=== PATIENT | female | born 1935 | race Caucasian/White ===

== ENCOUNTER → 2016-07-14 | Outpatient (CLI) | payer MEDICARE ==
[2016-07-14 13:36] LABS: INR 2.68
== END ==
LOC: M WUC 11:25
PROVIDERS: ATTEND Physician Assistant
DX: I26.99 Other pulmonary embolism without acute cor pulmonale (principal); Z51.81 Encounter for therapeutic drug level monitoring; Z79.01 Long term (current) use of anticoagulants

== ENCOUNTER → 2016-08-18 | Outpatient (CLI) | payer MEDICARE ==
[2016-08-18 19:42] LABS: INR 2.43
== END ==
LOC: M WUC 17:03
PROVIDERS: ATTEND Physician Assistant
DX: I26.99 Other pulmonary embolism without acute cor pulmonale (principal)

== ENCOUNTER → 2016-09-14 | Outpatient (CLI) | payer MEDICARE ==
[2016-09-14 14:01] LABS: INR 1.98
== END ==
LOC: M WUC 10:30
PROVIDERS: ATTEND Physician Assistant
DX: I26.99 Other pulmonary embolism without acute cor pulmonale (principal); Z51.81 Encounter for therapeutic drug level monitoring; Z79.01 Long term (current) use of anticoagulants

== ENCOUNTER → 2016-09-14 | Outpatient (CLI) | payer MEDICARE ==
[2016-09-14 14:32] LABS: CREATININE FOR GFR 1.63 MG/DL (0.55-1.02)
[2016-09-14 14:33] LABS: CALCIUM LEVEL 9.2 MG/DL (8.8-10.2); GLOMERULAR FILTRATION RATE 32.1 (>32); POTASSIUM SERUM 4.7 MEQ/L (3.5-5.1)
== END ==
LOC: M WUC 10:27
PROVIDERS: ATTEND Nurse Practitioner Family
DX: I11.0 Hypertensive heart disease with heart failure (principal); Z79.01 Long term (current) use of anticoagulants

== ENCOUNTER → 2016-11-02 | Outpatient (CLI) | payer MEDICARE | LOC: M WUC 14:21 | PROVIDERS: ATTEND Nurse Practitioner Family | DX: Z51.81 Encounter for therapeutic drug level monitoring (principal); Z79.01 Long term (current) use of anticoagulants; I26.99 Other pulmonary embolism without acute cor pulmonale ==

== ENCOUNTER → 2016-12-08 | Outpatient (CLI) | payer MEDICARE ==
[2016-12-08 12:54] LABS: INR 2.93
== END ==
LOC: M WUC 09:55
PROVIDERS: ATTEND Nurse Practitioner Family
DX: I26.99 Other pulmonary embolism without acute cor pulmonale (principal); Z51.81 Encounter for therapeutic drug level monitoring; Z79.01 Long term (current) use of anticoagulants

== ENCOUNTER → 2017-01-04 | Outpatient (CLI) | payer MEDICARE ==
[~2017-01-04] MED LIST: ALLO100T; ATEN25TA PO; CALC1CAP31; FLEC25TA; FLEC50TA PO; FURO20TA2; KPHOS50TA; LEVO50TA5; MAG400TA; PRAV20TA2; RANI150T; SPIR25TA2; TRAD5TAB; VITA200015; WARF-23
[2017-01-04 13:37] LABS: INR 2.61
== END ==
LOC: M WUC 10:18
PROVIDERS: ATTEND Physician Assistant
DX: I26.99 Other pulmonary embolism without acute cor pulmonale (principal); Z51.81 Encounter for therapeutic drug level monitoring; Z79.01 Long term (current) use of anticoagulants

== ENCOUNTER 2017-01-30 08:36 | Emergency (ER) | payer MEDICARE ==
[~2017-01-30] VITALS: Ht 157.5 cm; Wt 100.0 kg
[2017-01-30] MEDS ORDERED: LEVO50TA5 (08:56)
[2017-01-30] MEDS ORDERED: SPIR25TA2 (08:56)
[2017-01-30] MEDS ORDERED: CALC1CAP31 (08:56)
[2017-01-30] MEDS ORDERED: ALLO100T (08:56)
[2017-01-30] MEDS ORDERED: TRAD5TAB (08:56)
[2017-01-30] MEDS ORDERED: RANI150T (08:56)
[2017-01-30] MEDS ORDERED: KPHOS50TA (08:56)
[2017-01-30] MEDS ORDERED: WARF-23 (08:56)
[2017-01-30] MEDS ORDERED: MAG400TA (08:56)
[2017-01-30] MEDS ORDERED: FURO20TA2 (08:56)
[2017-01-30] MEDS ORDERED: VITA200015 (08:56)
[2017-01-30] MEDS ORDERED: PRAV20TA2 (08:56)
[2017-01-30] MEDS ORDERED: FLEC25TA (08:56)
[2017-01-30] MEDS ORDERED: FLEC50TA PO (10:08)
[2017-01-30 10:21] LABS: INR 2.75
[2017-01-30 10:22] LABS: BASO % 0.7 % (0.0-1.0); EOS % 0.6 % (0.0-3.0); LARGE UNSTAINED CELL # 0.1 K/mm3 (0.0-0.4); LARGE UNSTAINED CELL % 1.6 % (0.0-4.0); LYMPH # 1.6 K/mm3 (1.5-4.5); LYMPH % 21.9 % (24.0-44.0); MEAN CORPUSCULAR HEMOGLOBIN 31.5 pg (27.0-33.0); MEAN CORPUSCULAR HGB CONC 33.2 g/dl (32.0-36.5); MEAN CORPUSCULAR VOLUME 94.8 fl (80.0-96.0); MONO # 0.5 K/mm3 (0.0-0.8); MONO % 6.6 % (0.0-5.0); NEUTROPHILS # 5.1 K/mm3 (1.8-7.7); NEUTROPHILS % 68.6 % (36.0-66.0); PLATELET COUNT, AUTOMATED 231 k/mm3 (150-450); RED CELL DISTRIBUTION WIDTH 13.6 % (11.5-14.5); WHITE BLOOD COUNT 7.5 K/mm3 (4.0-10.0)
[2017-01-30] MEDS ORDERED: METOPROLOL TART 25 MG TABLET PO ONE (10:30)
[2017-01-30] MEDS ORDERED: METOPROLOL 5 MG/5 ML VIAL IV SCH (10:30)
[2017-01-30 10:48] LABS: ANION GAP 11 MEQ/L (8-16); BLOOD UREA NITROGEN 25 MG/DL (7-18); CALCIUM LEVEL 8.9 MG/DL (8.8-10.2); CARBON DIOXIDE LEVEL 27 MEQ/L (21-32); CHLORIDE LEVEL 104 MEQ/L (98-107); CREATININE FOR GFR 1.71 MG/DL (0.55-1.02); GLOMERULAR FILTRATION RATE 30.4 (>32); GLUCOSE, FASTING 184 MG/DL (83-110); POTASSIUM SERUM 4.1 MEQ/L (3.5-5.1); SODIUM LEVEL 142 MEQ/L (136-145)
[2017-01-30 10:49] VITALS: BP 163/83
--- NOTE | 2017-01-30 11:28 | REP ---
AP PORTABLE CHEST: 01/30/2017. Comparison: 12/13/2013, 01/05/2012. Clinical history: Chest pain. Findings: The lung pelaez are less well inflated than on the previous study but show underlying hyperinflation. There is no definite effusion, acute infiltrate, atelectasis or mass. Minor basilar fibrotic changes are seen. The aorta is mildly tortuous. Heart not grossly enlarged. Bones are demineralized. Impression: 1. Some underlying basilar fibrotic change without gross cardiomegaly, vascular redistribution or pulmonary edema. Signed by Emil Mukherjee MD 01/30/2017 06:02 P
[2017-01-30 13:12] VITALS: BP 131/63
[2017-01-30] MEDS ORDERED: ATEN25TA PO (13:14)
--- NOTE | 2017-01-30 18:11 | ECGEPIP ---
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
== END 2017-01-30 13:23 | disposition home or self-care (01) ==
LOC: M ED 08:36
DX: I48.91 Unspecified atrial fibrillation (principal); I50.9 Heart failure, unspecified; E11.9 Type 2 diabetes mellitus without complications; I10 Essential (primary) hypertension

== ENCOUNTER 2017-03-04 01:10 | Emergency (ER) | payer MEDICARE ==
[~2017-03-04] VITALS: Ht 160 cm; Wt 99.1 kg
[2017-03-04 02:53] LABS: BASO % 0.5 % (0.0-1.0); EOS # 0.1 K/mm3 (0.0-0.50); EOS % 1.1 % (0.0-3.0); LARGE UNSTAINED CELL # 0.1 K/mm3 (0.0-0.4); LYMPH # 1.5 K/mm3 (1.5-4.5); LYMPH % 15.8 % (24.0-44.0); MEAN CORPUSCULAR HEMOGLOBIN 31.7 pg (27.0-33.0); MEAN CORPUSCULAR HGB CONC 32.5 g/dl (32.0-36.5); MEAN CORPUSCULAR VOLUME 97.5 fl (80.0-96.0); MONO # 0.5 K/mm3 (0.0-0.8); NEUTROPHILS # 6.9 K/mm3 (1.8-7.7); NEUTROPHILS % 76.6 % (36.0-66.0); PLATELET COUNT, AUTOMATED 233 k/mm3 (150-450); RED CELL DISTRIBUTION WIDTH 13.9 % (11.5-14.5)
[2017-03-04 03:22] LABS: BLOOD UREA NITROGEN 26 MG/DL (7-18); CALCIUM LEVEL 8.7 MG/DL (8.8-10.2); CHLORIDE LEVEL 109 MEQ/L (98-107); CREATININE FOR GFR 1.62 MG/DL (0.55-1.02); FREE T4 1.29 NG/DL (0.76-1.46); GLUCOSE, FASTING 157 MG/DL (83-110); POTASSIUM SERUM 4.5 MEQ/L (3.5-5.1); SODIUM LEVEL 146 MEQ/L (136-145)
[2017-03-04 03:55] LABS: ANION GAP 7 MEQ/L (8-16); CARBON DIOXIDE LEVEL 30 MEQ/L (21-32)
[2017-03-04 06:09] VITALS: BP 125/68
--- NOTE | 2017-03-04 11:14 | REP ---
Clinical: Chest pain . Comparison: 01/30/2017 . Findings: The mediastinum and cardiac silhouette are stable and within normal limits for portable technique. The lung pelaez are clear without acute consolidation, effusion, or pneumothorax. Skeletal structures are intact. Impression: No acute cardiopulmonary process appreciated. Signed by Ron North MD 03/04/2017 07:23 A
--- NOTE | 2017-03-05 08:01 | ECGEPIP ---
Stationary ECG Study [facility] - ED Test Date: 2017-03-04 Pat Name: GALEN NATHAN Department: Room: - Gender: F Director Surgical: jesus : 1935 Requested By: RIANA Oneil Order Number: [id number] Reading MD: Chhaya Arita Measurements Intervals [place] Rate: 98 P: 62 MI: 93 QRS: -26 QRSD: 182 T: 138 QT: 417 QTc: 534 Interpretive Statements SINUS RHYTHM WITH SHORT MI INTERVAL LEFT BUNDLE BRANCH BLOCK Electronically Signed On 03-05-2017 8:00:44 EDT by Chhaya Arita
--- NOTE | 2017-03-05 08:03 | ECGEPIP ---
Stationary ECG Study [facility] - ED Test Date: 2017-03-04 Pat Name: GALEN NATHAN Department: Room: - Gender: F [employer]isher: jesus : 1935 Requested By: RIANA Oneil Order Number: [id number] Reading MD: Chhaya Arita Measurements Intervals [place] Rate: 96 P: 35 IA: 150 QRS: -25 QRSD: 176 T: 151 QT: 411 QTc: 519 Interpretive Statements SINUS RHYTHM LEFT BUNDLE BRANCH BLOCK Electronically Signed On 03-05-2017 8:03:25 EDT by Chhaya Arita
== END 2017-03-04 06:28 | disposition home or self-care (01) ==
LOC: M ED 01:10
DX: R00.2 Palpitations (principal); I50.9 Heart failure, unspecified; I25.10 Atherosclerotic heart disease of native coronary artery without angina pectoris

== ENCOUNTER → 2017-03-15 | Outpatient (CLI) | payer MEDICARE ==
[2017-03-15 18:06] LABS: INR 3.5
== END ==
LOC: M WUC 13:51
PROVIDERS: ATTEND Nurse Practitioner Family
DX: I26.99 Other pulmonary embolism without acute cor pulmonale (principal)

== ENCOUNTER → 2017-03-30 | Outpatient (REF) | payer MEDICARE ==
[2017-03-30 18:18] LABS: INR 4.77
== END ==
LOC: M LABDRWCV 16:10
PROVIDERS: ATTEND Nurse Practitioner Family
DX: I26.99 Other pulmonary embolism without acute cor pulmonale (principal)

== ENCOUNTER → 2017-04-07 | Outpatient (CLI) | payer MEDICARE | LOC: M WUC 13:52 | PROVIDERS: ATTEND Internal Medicine Cardiovascular Disease | DX: I26.99 Other pulmonary embolism without acute cor pulmonale (principal); Z51.81 Encounter for therapeutic drug level monitoring; Z79.01 Long term (current) use of anticoagulants ==

== ENCOUNTER → 2017-05-17 | Outpatient (CLI) | payer MEDICARE ==
[2017-05-17 12:32] LABS: INR 2.18
== END ==
LOC: M WUC 10:41
PROVIDERS: ATTEND Nurse Practitioner Family
DX: I26.99 Other pulmonary embolism without acute cor pulmonale (principal)

== ENCOUNTER → 2017-07-07 | Outpatient (CLI) | payer MEDICARE ==
[2017-07-07 21:00] LABS: INR 1.67; PROTHROMBIN TIME 20.2 SECONDS (12.4-14.5)
== END ==
LOC: M WUC 17:21
DX: Z51.81 Encounter for therapeutic drug level monitoring (principal); Z79.01 Long term (current) use of anticoagulants; I26.99 Other pulmonary embolism without acute cor pulmonale
CPT/HCPCS: 85610

== ENCOUNTER → 2017-07-25 | Outpatient (CLI) | payer MEDICARE ==
[2017-07-25 12:30] LABS: INR 2.45; PROTHROMBIN TIME 27.5 SECONDS (12.4-14.5)
== END ==
LOC: M WUC 10:24
DX: I26.99 Other pulmonary embolism without acute cor pulmonale (principal); Z51.81 Encounter for therapeutic drug level monitoring; Z79.01 Long term (current) use of anticoagulants
CPT/HCPCS: 85610

== ENCOUNTER → 2017-08-23 | Outpatient (CLI) | payer MEDICARE ==
[2017-08-23 20:30] LABS: INR 2.83
== END ==
LOC: M WUC 17:40
DX: I26.99 Other pulmonary embolism without acute cor pulmonale (principal); Z79.01 Long term (current) use of anticoagulants
CPT/HCPCS: 85610

== ENCOUNTER → 2017-09-19 | Outpatient (CLI) | payer MEDICARE ==
[2017-09-19 17:17] LABS: INR 3.26; PROTHROMBIN TIME 34.8 SECONDS (12.4-14.5)
== END ==
LOC: M WUC 10:48
DX: I26.99 Other pulmonary embolism without acute cor pulmonale (principal)
CPT/HCPCS: 85610

== ENCOUNTER → 2017-11-17 | Outpatient (CLI) | payer MEDICARE ==
[2017-11-17 12:14] LABS: INR 1.89; PROTHROMBIN TIME 22.3 SECONDS (12.4-14.5)
== END ==
LOC: M WUC 08:40
DX: I26.99 Other pulmonary embolism without acute cor pulmonale (principal); Z79.01 Long term (current) use of anticoagulants
CPT/HCPCS: 85610

== ENCOUNTER → 2017-12-06 | Outpatient (CLI) | payer MEDICARE ==
[2017-12-06 10:47] LABS: PROTHROMBIN TIME 27.1 SECONDS (12.4-14.5)
== END ==
LOC: M WUC 09:27
DX: I26.99 Other pulmonary embolism without acute cor pulmonale (principal)
CPT/HCPCS: 85610

== ENCOUNTER → 2018-01-03 | Outpatient (CLI) | payer MEDICARE ==
[2018-01-03 17:26] LABS: INR 2.74; PROTHROMBIN TIME 29.6 SECONDS (12.1-14.4)
== END ==
LOC: M WUC 11:43
DX: I26.99 Other pulmonary embolism without acute cor pulmonale (principal)
CPT/HCPCS: 85610

== ENCOUNTER 2018-01-20 11:42 | Emergency (ER) | payer MEDICARE | END 2018-01-20 15:10 | disposition home or self-care (01) | LOC: M ED 11:42 | DX: S00.33XA Contusion of nose, initial encounter (principal); S60.212A Contusion of left wrist, initial encounter; W01.10XA Fall on same level from slipping, tripping and stumbling with subsequent striking against unspecified object, initial encounter; Y92.89 Other specified places as the place of occurrence of the external cause; Y93.9 Activity, unspecified; Y99.9 Unspecified external cause status; I48.91 Unspecified atrial fibrillation; I50.9 Heart failure, unspecified; E11.9 Type 2 diabetes mellitus without complications; I10 Essential (primary) hypertension; E78.00 Pure hypercholesterolemia, unspecified; M19.012 Primary osteoarthritis, left shoulder; M85.812 Other specified disorders of bone density and structure, left shoulder; M47.812 Spondylosis without myelopathy or radiculopathy, cervical region; Z79.01 Long term (current) use of anticoagulants; Z79.899 Other long term (current) drug therapy; Z88.8 Allergy status to other drugs, medicaments and biological substances | CPT/HCPCS: 73030 ==

== ENCOUNTER → 2018-02-08 | Outpatient (CLI) | payer MEDICARE ==
[2018-02-08 12:20] LABS: INR 2.43; PROTHROMBIN TIME 26.9 SECONDS (12.1-14.4)
== END ==
LOC: M WUC 08:48
DX: I26.99 Other pulmonary embolism without acute cor pulmonale (principal)
CPT/HCPCS: 85610

== ENCOUNTER → 2018-03-07 | Outpatient (CLI) | payer MEDICARE ==
[2018-03-07 11:18] LABS: INR 2.93; PROTHROMBIN TIME 31.2 SECONDS (12.1-14.4)
== END ==
LOC: M WUC 09:20
DX: I26.99 Other pulmonary embolism without acute cor pulmonale (principal); Z51.81 Encounter for therapeutic drug level monitoring; Z79.01 Long term (current) use of anticoagulants
CPT/HCPCS: 85610

== ENCOUNTER → 2018-04-10 | Outpatient (CLI) | payer MEDICARE ==
[2018-04-10 13:38] LABS: INR 2.35; PROTHROMBIN TIME 26.2 SECONDS (12.1-14.4)
== END ==
LOC: M WUC 10:10
DX: I26.99 Other pulmonary embolism without acute cor pulmonale (principal)
CPT/HCPCS: 85610

== ENCOUNTER → 2018-05-08 | Outpatient (CLI) | payer MEDICARE ==
[2018-05-08 19:50] LABS: INR 3.02
== END ==
LOC: M WUC 17:11
DX: I26.99 Other pulmonary embolism without acute cor pulmonale (principal); Z51.81 Encounter for therapeutic drug level monitoring; Z79.01 Long term (current) use of anticoagulants
CPT/HCPCS: 85610

== ENCOUNTER → 2018-08-01 | Outpatient (CLI) | payer MEDICARE ==
[~2018-08-01] MED LIST changes: +FLEC50HA PO; -FLEC50TA PO; +SPIR-10; -SPIR25TA2
[2018-08-01 14:51] LABS: INR 2.03; PROTHROMBIN TIME 23.4 SECONDS (12.1-14.4)
== END ==
LOC: M WUC 11:22
PROVIDERS: ATTEND Physician Assistant
DX: I26.99 Other pulmonary embolism without acute cor pulmonale (principal)

== ENCOUNTER → 2018-08-22 | Outpatient (CLI) | payer MEDICARE ==
[2018-08-22 17:11] LABS: INR 2.4; PROTHROMBIN TIME 26.6 SECONDS (12.1-14.4)
== END ==
LOC: M WUC 11:29
PROVIDERS: ATTEND Physician Assistant
DX: I26.99 Other pulmonary embolism without acute cor pulmonale (principal)

== ENCOUNTER 2018-08-31 10:38 | Emergency (ER) | payer MEDICARE ==
[~2018-08-31] VITALS: Ht 157.5 cm; Wt 99.6 kg
[~2018-08-31 10:38] MED LIST changes: -ALLO100T; +ALLO100T PO; -CALC1CAP31; +CALC1CAP31 PO; -FURO20TA2; +FURO20TA2 PO; -KPHOS50TA; +KPHOS50TA PO; -MAG400TA; +MAG400TA PO; -PRAV20TA2; +PRAV20TA2 PO; -RANI150T; +RANI150T PO; -SPIR-10; +SPIR-10 PO; -TRAD5TAB; +TRAD5TAB PO; -VITA200015; +VITA200015 PO; -WARF-23; +WARF-23 PO
[2018-08-31 11:23] LABS: BASO # 0.1 10^3/uL (0.0-0.2); BASO % 0.6 % (0.0-1.0); EOS # 0.1 10^3/uL (0.0-0.50); HEMATOCRIT 47.1 % (36.0-47.0); HEMOGLOBIN 15.2 g/dl (12.0-15.5); LYMPH # 2.4 10^3/uL (1.5-4.5); LYMPH % 27.7 % (24.0-44.0); MEAN CORPUSCULAR HEMOGLOBIN 31.3 pg (27.0-33.0); MEAN CORPUSCULAR HGB CONC 32.3 g/dl (32.0-36.5); MEAN CORPUSCULAR VOLUME 97.1 fl (80.0-96.0); MONO # 0.7 10^3/uL (0.0-0.8); MONO % 7.9 % (0.0-5.0); NEUTROPHILS # 5.5 10^3/uL (1.8-7.7); NEUTROPHILS % 62.2 % (36.0-66.0); PLATELET COUNT, AUTOMATED 209 10^3/uL (150-450); RED BLOOD COUNT 4.85 10^6/uL (4.00-5.40); WHITE BLOOD COUNT 8.8 10^3/uL (4.0-10.0)
--- NOTE | 2018-08-31 11:30 | REP ---
Portable chest x-ray: Single view. History: Chest pain. Comparison chest x-ray: March 04, 2017. Findings: EKG monitoring electrodes overlie the chest. There is mild linear fibrosis in the lung bases unchanged. No infiltrate is seen. Heart is not enlarged. The aorta is calcific. There is diffuse osteopenia. No focal bony destructive lesion is appreciated. Impression: Mild bibasilar linear fibrosis. Otherwise no acute disease. Electronically Signed by Sumit Traore MD 08/31/2018 11:31 A
[2018-08-31 11:42] LABS: INR 2.59; PROTHROMBIN TIME 28.3 SECONDS (12.1-14.4)
[2018-08-31 11:53] LABS: ALBUMIN 3.5 GM/DL (3.2-5.2); ALT/SGPT 22 U/L (12-78); BILIRUBIN,DIRECT 0.1 MG/DL (0.0-0.2); BILIRUBIN,TOTAL 0.6 MG/DL (0.2-1.0); BLOOD UREA NITROGEN 38 MG/DL (7-18); CALCIUM LEVEL 8.8 MG/DL (8.8-10.2); CARBON DIOXIDE LEVEL 30 MEQ/L (21-32); CHLORIDE LEVEL 103 MEQ/L (98-107); CK-MB VALUE MASS < 1.0 NG/ML (<3.6); CPK CREATINE PHOSPHOKINASE 32 U/L (26-192); CREATININE FOR GFR 2.07 MG/DL (0.55-1.30); GLOMERULAR FILTRATION RATE 24.3 (>32); GLUCOSE, FASTING 174 MG/DL (70-100); LIPASE 245 U/L (73-393); MB/CK RELATIVE INDEX 3.12 (< OR =4); NT-PRO BNP 185 PG/ML (<450); POTASSIUM SERUM 4.3 MEQ/L (3.5-5.1); SODIUM LEVEL 140 MEQ/L (136-145); TOTAL PROTEIN 6.8 GM/DL (6.4-8.2); TROPONIN I < 0.02 NG/ML (< 0.10)
[2018-08-31] MEDS ORDERED: NS 500 ML IV ONE (12:00)
[2018-08-31] MEDS ORDERED: WARF-23 PO (15:49)
[2018-08-31] MEDS ORDERED: ATEN25TA PO (15:49)
[2018-08-31 16:37] VITALS: BP 134/63
--- NOTE | 2018-08-31 17:43 | CR.PDOC ---
General Date of Consultation: Aug 31, 2018 Referring Provider: VAMSI GUERRERO DO Attending Physician: ELVIN NUNEZ MD Consultation REASON FOR CONSULTATION/CHIEF COMPLAINT: Dizziness/weakness HISTORY OF PRESENT ILLNESS: Leona Rivera is an 82-year-old white female who presented to the emergency dep artment this afternoon via EMS with a chief complaint of dizziness and weakness. Patient reports going to get breakfast in the kitchen when she suddenly became dizzy while standing. Patient utilized her life alert and was brought to the hospital via EMS. At the time of presentation she denied any other complaints. She reported her dizziness had dissipated. She denied any pain shortness of breath or nausea. When asked about her dizziness, the patient states that she never lost consciousness or that she never fell. Patient reports a history of hypothyroidism. She states that she was started on 50 mcg of levothyroxine by her primary care. After routine lab work 3 months ago, the patient's dose of levothyroxine was increased to 90 mcg, a dose which she took for 3 months. She states that this made her feel extremely weak and fatigued. The patient shared these concerns with her primary care provider 2 weeks ago, who subsequently reduced her dose back to 50 mcg. Unfortunately, the patient reports not being compliant with her medication and that she has not taken any in the last week. Medical team has been consult to determine if the patient is a candidate for admission and further workup and management. REVIEW OF SYSTEMS: CONSTITUTIONAL: Patient reports 3 month history of fatigue, somewhat improved by the discontinuation of her levothyroxine. She denies fevers, chills, occult to sleeping, night sweats or changes in weight HEENT: She denies headache, blurry or double vision CARDIOVASCULAR: She denies chest pain/discomfort, palpitations RESPIRATORY: She shortness of breath, cough, wheezing GENITOURINARY: She denies difficulty urinating MUSCULOSKELETAL: She denies any extremity pain GASTROINTESTINAL: She denies reflux, abdominal pain, nausea/vomiting, diarrhea or constipation SKIN: Skin is pink warm and moist NEUROLOGICAL: She denies focal neurologic deficits PSYCHIATRIC: She denies depressive symptoms ENDOCRINE: She denies polyuria or polydipsia PHYSICAL EXAMINATION: VITAL SIGNS: Please see below. GENERAL APPEARANCE: Pleasant, alert and oriented, able to participate in her care HEENT: Mucous membranes moist, EOMI, no nystagmus, PERRLA RESPIRATORY: Clear to auscultation bilaterally CARDIOVASCULAR: Regular rate and rhythm, no murmurs gallops or rubs, normal S1- S2 ABDOMEN: Soft, nontender, nondistended, no masses or organomegaly palpated EXTREMITIES: 2+ peripheral pulses, equal and symmetric bilaterally NEUROLOGICAL: Alert and oriented 3, No focal deficits on examination, strength intact PSYCHIATRIC: Mood and affect appropriate LABORATORY DATA: Please see below. ASSESSMENT/PLAN: I personally assessed hand examined the patient. She denies symptoms consistent with syncope. She states that she has improved since her initial presentation with complete resolution of her dizziness. Her exam was negative without any focal neurologic findings. Patient was nonfebrile, normotensive and not hypoxic. Orthostatics performed and were negative. She did not have an elevated white count or any electrolyte abnormalities. Chest x-ray was negative for any acute processes. 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 Mansfield who was able to identify her creatinine has been 1.8 back in May 2018. From a renal standpoint, and given that this is quite close to her baseline, Dr. Mansfield felt comfortable allowing her to return home with a follow-up appointment in the office in one week. In regards to her hypothyroid, TSH of 6.8 was identified during laboratory workup. The need for her thyroid medication, the importance of daily adherence was discussed with the patient. A luz maria discussion was had with the patient regarding her borderline admission status and negative findings. Through shared decision making, Ms. Rivera elected to return home with close outpatient follow-up. Patient was instructed to return to the emergency department should her symptoms return or worsen. Ms. Rivera was given a prescription for 35 mcg of levothyroxine to be taken daily. She currently has an appointment scheduled with her primary care provider next Tuesday. Patient was in agreement with the plan. Vital Signs/I&O Vital Signs Date Time Temp Pulse Resp B/P (MAP) Pulse Ox O2 Delivery O2 Flow Rate FiO2 08/31/18 16:37 97.9 65 18 134/63 (86) 95 Room Air Laboratory Data Labs 24H Laboratory Tests 2 08/31/18 11:06: Immature Granulocyte % (Auto) 0.6, White Blood Count 8.8, Red Blood Count 4.85, Hemoglobin 15.2, Hematocrit 47.1H, Mean Corpuscular Volume 97.1H, Mean Corpuscular Hemoglobin 31.3, Mean Corpuscular Hemoglobin Concent 32.3, Red Cell Distribution Width 13.4, Platelet Count 209, Neutrophils (%) (Auto) 62.2, Lymphocytes (%) (Auto) 27.7, Monocytes (%) (Auto) 7.9H, Eosinophils (%) (Auto) 1.0, Basophils (%) (Auto) 0.6, Neutrophils # (Auto) 5.5, Lymphocytes # (Auto) 2.4, Monocytes # (Auto) 0.7, Eosinophils # (Auto) 0.1, Basophils # (Auto) 0.1, Nucleated Red Blood Cells % (auto) 0.0, Prothrombin Time 28.3H, Prothromb Time International Ratio 2.59, Anion Gap 7L, Glomerular Filtration Rate 24.3L, Calcium Level 8.8, Aspartate Amino Transf (AST/SGOT) 15, Alanine Aminotransferase (ALT/SGPT) 22, Alkaline Phosphatase 84, Total Bilirubin 0.6, Direct Bilirubin 0.1, Total Creatine Kinase 32, Creatine Kinase MB < 1.0, Creatine Kinase MB Relative Index 3.12, Troponin I < 0.02, RF-Rtw-[id number]-Type Natriuretic Peptide 185, Total Protein 6.8, Albumin 3.5, Albumin/Globulin Ratio 1.06, Lipase 245, Thyroid Stimulating Hormone (TSH) 6.820H CBC/BMP Laboratory Tests 08/31/18 11:06 Red Blood Count 4.85, Mean Corpuscular Volume 97.1 H, Mean Corpuscular Hemoglobin 31.3, Mean Corpuscular Hemoglobin Concent 32.3, Red Cell Distribution Width 13.4, Neutrophils (%) (Auto) 62.2, Lymphocytes (%) (Auto) 27.7, Monocytes (%) (Auto) 7.9 H, Eosinophils (%) (Auto) 1.0, Basophils (%) (Auto) 0.6, Neutrophils # (Auto) 5.5, Lymphocytes # (Auto) 2.4, Monocytes # (Auto) 0.7, Eosinophils # (Auto) 0.1, Basophils # (Auto) 0.1 Allergies Coded Allergies: Atorvastatin (Verified Adverse Reaction, Mild, HEADACHE,EYES HURT, 01/20/18) Ezetimibe (Verified Adverse Reaction, Mild, FEELS ODD, 01/20/18) Levothyroxine (Unverified Adverse Reaction, Unknown, PT STATES UNABLE TO WALK OR USE ARMS; STOPPED TAKING MED, 08/31/18) Home Medications Scheduled Allopurinol (Allopurinol) 100 Mg Tab, 100 MG PO DAILY, (Reported) Atenolol (Atenolol) 25 Mg Tab, 12.5 MG PO DAILY, (Reported) Calcitriol (Calcitriol) 0.25 Mcg Cap, 0.25 MCG PO DAILY, (Reported) Cholecalciferol (Vitamin D) 2,000 Unit Tab, 2,000 UNITS PO DAILY, (Reported) Flecainide Acetate (Flecainide Acetate) 50 Mg Tab, 50 MG PO BID, (Reported) Furosemide (Furosemide) 20 Mg Tab, 40 MG PO DAILY, (Reported) Linagliptin Base (Tradjenta) 5 Mg Tab, 5 MG PO DAILY, (Reported) Magnesium Oxide (Magnesium Oxide) 400 Mg Tab, 400 MG PO QHS, (Reported) Potassium Phosphate Monobasic (K-Phos) 500 Mg Tab, 500 MG PO Q2D, (Reported) TAKES IN EVENING Pravastatin Sodium (Pravastatin Sodium) 20 Mg Tab, 20 MG PO QHS, (Reported) Ranitidine HCl (Ranitidine HCl) 150 Mg Tab, 150 MG PO BID, (Reported) Spironolactone (Spironolactone) 25 Mg Tab, 25 MG PO DAILY, (Reported) Warfarin Sod (Warfarin Sodium) 5 Mg Tab, 5 MG PO 3XW, (Reported) TUESDAY, TUESDAY, AND TUESDAY Warfarin Sod (Warfarin Sodium) 5 Mg Tab, 2.5 MG PO 4XWK, (Reported) TUESDAY, TUESDAY, TUESDAY, TUESDAY GME ATTESTATION GME ATTESTATION My faculty preceptor for this patient encounter was physically present during the encounter and was fully available. All aspects of the patient interview, examination, medical decision making process, and medical care plan development were reviewed and approved by the faculty preceptor. The faculty preceptor is aware and concurs with the plan as stated in the body of this note and will attest to such by his/her cosignature. Attending Note Attending Note I have both independently examined this patient as well as reviewed the H&P. I have discussed in detail with the resident the findings and plan of treatment as documented in the resident's note. Patient denies any dizziness at time of my examination. Ambulation trial was done in the ER and patient was able to ambulat e safely. Patient can have outpatient evaluation for the dizziness. She is not currently at fall risk, has family nearby and has life alert. She has had some side effects from her synthroid medication and has self tapered it off and was advised that she should discuss perhaps a lower dose with her PCP on Tuesday at her scheduled appointment. She will resume 25mcg for now ANISH DINH DO Aug 31, 2018 17:43 ELVIN NUNEZ MD Sep 01, 2018 13:26
--- NOTE | 2018-09-01 06:51 | ECGEPIP ---
Stationary ECG Study [facility] - ED Test Date: 2018-08-31 Pat Name: GALEN NATHAN Department: Room: - Gender: F [employer] Employee: DONALD : 1935 Requested By: Chhaya Arita Order Number: [id number] Reading MD: Doron Diallo Measurements Intervals [place] Rate: 61 P: 14 IA: 171 QRS: -24 QRSD: 170 T: 116 QT: 489 QTc: 495 Interpretive Statements SINUS RHYTHM LEFT BUNDLE BRANCH BLOCK SIMILAR TO 03/04/17 Electronically Signed On 09-01-2018 6:51:04 EST by Doron Diallo
== END 2018-08-31 16:36 | disposition home or self-care (01) ==
LOC: M ED 10:38 → EDBD 10:38 → M ED 16:36
DX: N17.9 Acute kidney failure, unspecified (principal); R53.1 Weakness; R55 Syncope and collapse; R63.4 Abnormal weight loss; I45.10 Unspecified right bundle-branch block; J84.10 Pulmonary fibrosis, unspecified; I11.0 Hypertensive heart disease with heart failure; I50.9 Heart failure, unspecified; N18.9 Chronic kidney disease, unspecified; Z86.711 Personal history of pulmonary embolism; Z88.8 Allergy status to other drugs, medicaments and biological substances; Z79.899 Other long term (current) drug therapy; Z79.01 Long term (current) use of anticoagulants; Z79.84 Long term (current) use of oral hypoglycemic drugs

== ENCOUNTER → 2018-09-27 | Outpatient (CLI) | payer MEDICARE ==
[2018-09-27 16:47] LABS: INR 2.86; PROTHROMBIN TIME 30.6 SECONDS (12.1-14.4)
== END ==
LOC: M WUC 11:27
PROVIDERS: ATTEND Physician Assistant
DX: I26.99 Other pulmonary embolism without acute cor pulmonale (principal); Z79.01 Long term (current) use of anticoagulants

== ENCOUNTER → 2018-10-26 | Outpatient (CLI) | payer MEDICARE ==
[~2018-10-26] MED LIST changes: +LIDO5DIS41 TD; +NORC1TAB7 PO
[2018-10-26 17:18] LABS: INR 2.59; PROTHROMBIN TIME 28.3 SECONDS (12.1-14.4)
== END ==
LOC: M WUC 12:12
PROVIDERS: ATTEND Physician Assistant
DX: I26.99 Other pulmonary embolism without acute cor pulmonale (principal); Z79.01 Long term (current) use of anticoagulants

== ENCOUNTER 2018-10-29 15:43 | Emergency (ER) | payer MEDICARE ==
[~2018-10-29] VITALS: Ht 157.5 cm; Wt 100.0 kg
[~2018-10-29 15:43] MED LIST changes: -LIDO5DIS41 TD; -NORC1TAB7 PO
[2018-10-29] MEDS ORDERED: NORCO, ANEXSIA 5/325MG TABLET (HYDROcodone/ACETAMINOPHEN) PO ONE (16:15)
[2018-10-29] MEDS ORDERED: LIDOCAINE 5% (LIDODERM) PATCH TD ONE (18:45)
[2018-10-29] MEDS ORDERED: NORC1TAB7 PO (18:58)
[2018-10-29] MEDS ORDERED: LIDO5DIS41 TD (18:58)
[2018-10-29] MEDS ORDERED: NORCO 5/325MG TABLET (BULK FOR ED) PO ONE (19:00)
[2018-10-29 19:22] VITALS: BP 156/70
[2018-10-29] MEDS ORDERED: **NOTE PATIENT COMMENT** MISC XX SCH (21:00)
--- NOTE | 2018-10-30 07:48 | REP ---
CT LUMBAR SPINE: CT lumbar spine was performed in the axial plane. Sagittal and coronal reconstruction images are performed. No compression fracture is seen. Lumbar vertebral bodies are relatively well aligned. There is curvature of the thoracolumbar spine convex to the right. There is moderate diffuse spurring. There is moderate disc space narrowing with subchondral sclerosis and vacuum at T12-L1. There is moderately severe narrowing with subchondral sclerosis and vacuum at L2-3 and L3-4. There is slight narrowing at L4-5. At the L2-3 level there appears to be diffuse disc bulging. There is hypertrophic change and the posterior facets and hypertrophy of the ligamentum flavum. This appears to cause moderate Spinal stenosis at this level. There is bilateral foraminal level at this level. At L3-4 there is moderate diffuse disc bulging with hypertrophic changes at the posterior facets and of the ligamentum flavum. There appears to be a moderate degree of spinal stenosis. There is bilateral foraminal narrowing. At L4-5 there is moderate diffuse disc bulging with hypertrophic change at the posterior facets and hypertrophy of the ligamentum flavum. There is moderate spinal stenosis. There is right sided foraminal narrowing. IMPRESSION: Moderate diffuse disc bulging and posterior facet hypertrophic changes L2-3, L3-4, L4-5 with moderate spinal stenosis at these levels. There is also bilateral foraminal narrowing at these levels as discussed in detail above. Electronically Signed by Jose Carlos Myers MD 10/30/2018 05:22 P
== END 2018-10-29 19:28 | disposition home or self-care (01) ==
LOC: M ED 15:43 → EDBD 15:43 → M ED 19:28
DX: M48.07 Spinal stenosis, lumbosacral region (principal); M51.27 Other intervertebral disc displacement, lumbosacral region; M51.37 Other intervertebral disc degeneration, lumbosacral region; M54.17 Radiculopathy, lumbosacral region; I12.9 Hypertensive chronic kidney disease with stage 1 through stage 4 chronic kidney disease, or unspecified chronic kidney disease; N18.3 Chronic kidney disease, stage 3 (moderate); I50.9 Heart failure, unspecified; I48.91 Unspecified atrial fibrillation; E07.9 Disorder of thyroid, unspecified; E66.8 Other obesity; Z79.899 Other long term (current) drug therapy; Z79.01 Long term (current) use of anticoagulants; Z88.8 Allergy status to other drugs, medicaments and biological substances

== ENCOUNTER → 2018-12-05 | Outpatient (CLI) | payer MEDICARE ==
[~2018-12-05] MED LIST changes: +LIDO5DIS41 TD; +NORC1TAB7 PO
[2018-12-05 13:27] LABS: INR 2.6; PROTHROMBIN TIME 28.4 SECONDS (12.1-14.4)
== END ==
LOC: M WUC 11:21
PROVIDERS: ATTEND Physician Assistant
DX: I26.99 Other pulmonary embolism without acute cor pulmonale (principal)

== ENCOUNTER → 2019-01-02 | Outpatient (CLI) | payer MEDICARE ==
[2019-01-02 13:56] LABS: INR 2.16; PROTHROMBIN TIME 23.9 SECONDS (11.8-14.0)
== END ==
LOC: M WUC 09:51
PROVIDERS: ATTEND Physician Assistant
DX: I26.99 Other pulmonary embolism without acute cor pulmonale (principal)

== ENCOUNTER → 2019-01-31 | Outpatient (CLI) | payer MEDICARE ==
[2019-01-31 13:57] LABS: INR 2.34; PROTHROMBIN TIME 25.5 SECONDS (11.8-14.0)
== END ==
LOC: M WUC 11:31
PROVIDERS: ATTEND Physician Assistant
DX: I26.99 Other pulmonary embolism without acute cor pulmonale (principal)

== ENCOUNTER → 2019-03-13 | Outpatient (CLI) | payer MEDICARE ==
[2019-03-13 12:30] LABS: INR 2.38; PROTHROMBIN TIME 25.8 SECONDS (11.8-14.0)
== END ==
LOC: M WUC 10:01
PROVIDERS: ATTEND Physician Assistant
DX: I26.99 Other pulmonary embolism without acute cor pulmonale (principal)

== ENCOUNTER → 2019-04-10 | Outpatient (CLI) | payer MEDICARE ==
[2019-04-10 20:12] LABS: INR 2.85; PROTHROMBIN TIME 29.8 SECONDS (11.8-14.0)
== END ==
LOC: M WUC 16:51
PROVIDERS: ATTEND Physician Assistant
DX: I26.99 Other pulmonary embolism without acute cor pulmonale (principal)

== ENCOUNTER → 2019-05-15 | Outpatient (REF) | payer MEDICARE ==
[2019-05-15 21:18] LABS: INR 2.98; PROTHROMBIN TIME 30.9 SECONDS (11.8-14.0)
== END ==
LOC: M LABWUC 11:48
PROVIDERS: ATTEND Physician Assistant
DX: I26.99 Other pulmonary embolism without acute cor pulmonale (principal)

== ENCOUNTER 2019-05-26 15:15 | Emergency (ER) | payer MEDICARE ==
[~2019-05-26] VITALS: Ht 157.5 cm; Wt 100.0 kg
[2019-05-26] MEDS ORDERED: EUTH50TA OR (15:50)
[2019-05-26] MEDS ORDERED: NS 1,000 ML IV SCH (16:19)
[2019-05-26 16:29] LABS: BASO % 0.3 % (0.0-1.0); EOS # 0.1 10^3/uL (0.0-0.5); EOS % 0.4 % (0.0-3.0); HEMATOCRIT 46.4 % (36.0-47.0); HEMOGLOBIN 14.6 g/dl (12.0-15.5); LYMPH # 1.8 10^3/uL (1.5-5.0); LYMPH % 15.8 % (24.0-44.0); MEAN CORPUSCULAR HEMOGLOBIN 30.9 pg (27.0-33.0); MEAN CORPUSCULAR HGB CONC 31.5 g/dl (32.0-36.5); MEAN CORPUSCULAR VOLUME 98.3 fl (80.0-96.0); MONO # 0.8 10^3/uL (0.0-0.8); MONO % 7.2 % (0.0-5.0); NEUTROPHILS # 8.5 10^3/uL (1.5-8.5); NEUTROPHILS % 75.9 % (36.0-66.0); PLATELET COUNT, AUTOMATED 213 10^3/uL (150-450); RED BLOOD COUNT 4.72 10^6/uL (4.00-5.40); WHITE BLOOD COUNT 11.2 10^3/uL (4.0-10.0)
[2019-05-26 16:32] LABS: INR 3.77; PROTHROMBIN TIME 37.3 SECONDS (11.8-14.0)
[2019-05-26 16:54] LABS: ALBUMIN 3.4 GM/DL (3.2-5.2); BILIRUBIN,DIRECT 0.1 MG/DL (0.0-0.2); BILIRUBIN,TOTAL 0.6 MG/DL (0.2-1.0); CALCIUM LEVEL 9.4 MG/DL (8.8-10.2); CREATININE FOR GFR 1.84 MG/DL (0.55-1.30); GLOMERULAR FILTRATION RATE 27.8 (>32); POTASSIUM SERUM 4.5 MEQ/L (3.5-5.1); TOTAL PROTEIN 6.6 GM/DL (6.4-8.2)
--- NOTE | 2019-05-26 17:44 | REPVR ---
PROCEDURE INFORMATION: Exam: CT Abdomen And Pelvis Without Contrast Exam date and time: 05/26/2019 5:11 PM Age: 83 years old Clinical history: Abdominal pain; Additional info: L abd pain R/O diverticulitis TECHNIQUE: Imaging protocol: Computed tomography of the abdomen and pelvis without contrast. Radiation optimization: All CT scans at this facility use at least one of these dose optimization techniques: automated exposure control; mA and/or kV adjustment per patient size (includes targeted exams where dose is matched to clinical indication); or iterative reconstruction. COMPARISON: No relevant prior studies available. FINDINGS: Liver: Normal. No mass. Gallbladder and bile ducts: There has been a cholecystectomy. Pancreas: Mild fatty replacement of the pancreas. Spleen: Normal. No splenomegaly. Adrenals: Normal. No mass. Kidneys and ureters: Bilateral renal parenchymal atrophy and renal sinus lipomatosis consistent with patient age. Stomach and bowel: There is poor distention and thickening of the nguyen of the gastric diffusely most likely related to incomplete distention with oral contrast media or water. If there is any suspicion for infiltrative pathology further evaluation suggested. There is a diffusely boggy appearance of the right, left, and sigmoid colon with an ahasutral countour. There are mild pericolonic inflammatory changes. Findings consistent with acute colitis. No abscess demonstrated. Appendix: No evidence of appendicitis. Intraperitoneal space: Unremarkable. No free air. No significant fluid collection. Vasculature: The aorta demonstrates moderate atherosclerotic calcification. Lymph nodes: Unremarkable. No enlarged lymph nodes. Bladder: Unremarkable as visualized. Reproductive: There has been a hysterectomy. Bones/joints: Moderate central spinal stenosis L2-3, moderate to severe central spinal stenosis L3-4 and L4-5. Soft tissues: Unremarkable. Other findings: Osteoporosis. Levoscoliosis. IMPRESSION: 1. There has been a cholecystectomy. 2. There is a diffusely boggy appearance of the right, left, and sigmoid colon with an ahasutral countour. There are mild pericolonic inflammatory changes. Findings consistent with acute colitis. No abscess demonstrated. 3. There has been a hysterectomy. Electronically signed by: Derick Keller On 05/26/2019 17:44:04 PM
[2019-05-26 17:47] VITALS: BP 159/70
--- NOTE | 2019-05-28 13:48 | ED PDOC ---
Post-Departure Follow-Up dr jones faxed formal report of ct abd/p for fu Carrol White MD May 28, 2019 13:48
== END 2019-05-26 18:42 | disposition home or self-care (01) ==
LOC: M ED 15:15
DX: E86.0 Dehydration (principal); E11.9 Type 2 diabetes mellitus without complications; I12.9 Hypertensive chronic kidney disease with stage 1 through stage 4 chronic kidney disease, or unspecified chronic kidney disease; N18.9 Chronic kidney disease, unspecified; E78.5 Hyperlipidemia, unspecified; E03.9 Hypothyroidism, unspecified; K21.9 Gastro-esophageal reflux disease without esophagitis; Z88.8 Allergy status to other drugs, medicaments and biological substances

== ENCOUNTER → 2019-06-11 | Outpatient (CLI) | payer MEDICARE ==
[~2019-06-11] MED LIST changes: +EUTH50TA OR
[2019-06-11 16:46] LABS: INR 2.98; PROTHROMBIN TIME 30.9 SECONDS (11.8-14.0)
== END ==
LOC: M WUC 11:50
PROVIDERS: ATTEND Physician Assistant
DX: I26.99 Other pulmonary embolism without acute cor pulmonale (principal)

== ENCOUNTER → 2019-07-16 | Outpatient (CLI) | payer MEDICARE ==
[2019-07-16 13:05] LABS: INR 2.58; PROTHROMBIN TIME 27.5 SECONDS (11.8-14.0)
== END ==
LOC: M WUC 10:11
PROVIDERS: ATTEND Physician Assistant
DX: I26.99 Other pulmonary embolism without acute cor pulmonale (principal)

== ENCOUNTER → 2019-08-14 | Outpatient (CLI) | payer MEDICARE ==
[2019-08-14 13:38] LABS: INR 2.86; PROTHROMBIN TIME 29.9 SECONDS (11.8-14.0)
== END ==
LOC: M WUC 10:27
PROVIDERS: ATTEND Physician Assistant
DX: I26.99 Other pulmonary embolism without acute cor pulmonale (principal)

== ENCOUNTER → 2019-09-12 | Outpatient (CLI) | payer MEDICARE ==
[2019-09-12 13:38] LABS: INR 2.92; PROTHROMBIN TIME 30.4 SECONDS (11.8-14.0)
== END ==
LOC: M WUC 09:54
PROVIDERS: ATTEND Physician Assistant
DX: I26.99 Other pulmonary embolism without acute cor pulmonale (principal)

== ENCOUNTER → 2019-10-23 | Outpatient (CLI) | payer MEDICARE ==
[2019-10-23 18:13] LABS: INR 1.84
== END ==
LOC: M WUC 11:42
PROVIDERS: ATTEND Internal Medicine Cardiovascular Disease
DX: I26.99 Other pulmonary embolism without acute cor pulmonale (principal)

== ENCOUNTER → 2019-11-21 | Outpatient (CLI) | payer MEDICARE ==
[2019-11-21 12:42] LABS: INR 3.06; PROTHROMBIN TIME 31.6 SECONDS (11.8-14.0)
== END ==
LOC: M WUC 09:09
PROVIDERS: ATTEND Internal Medicine Cardiovascular Disease
DX: I26.99 Other pulmonary embolism without acute cor pulmonale (principal)

== ENCOUNTER → 2019-12-27 | Outpatient (CLI) | payer MEDICARE ==
[2019-12-27 11:00] LABS: INR 2.6; PROTHROMBIN TIME 27.7 SECONDS (11.8-14.0)
== END ==
LOC: M WUC 08:25
PROVIDERS: ATTEND Physician Assistant
DX: I26.99 Other pulmonary embolism without acute cor pulmonale (principal)

== ENCOUNTER → 2020-01-29 | Outpatient (REF) | payer MEDICARE ==
[2020-02-25 13:27] LABS: INR 3.14
== END ==
LOC: M LABWUC 15:27
PROVIDERS: ATTEND Physician Assistant
DX: I26.99 Other pulmonary embolism without acute cor pulmonale (principal)

== ENCOUNTER → 2020-02-12 | Outpatient (REF) | payer MEDICARE ==
[2020-04-03 08:31] LABS: INR 1.92; PROTHROMBIN TIME 22.4 SECONDS (12.5-14.3)
== END ==
LOC: M WUC 11:27
PROVIDERS: ATTEND Physician Assistant
DX: I26.99 Other pulmonary embolism without acute cor pulmonale (principal)

== ENCOUNTER → 2020-03-11 | Outpatient (CLI) | payer MEDICARE ==
[2020-03-11 20:23] LABS: INR 2.21; PROTHROMBIN TIME 25.1 SECONDS (11.8-14.0)
== END ==
LOC: M WUC 17:52
PROVIDERS: ATTEND Physician Assistant
DX: I26.99 Other pulmonary embolism without acute cor pulmonale (principal); Z79.01 Long term (current) use of anticoagulants

== ENCOUNTER → 2020-04-29 | Outpatient (CLI) | payer MEDICARE ==
[2020-04-29 20:41] LABS: INR 2.29; PROTHROMBIN TIME 25.7 SECONDS (12.5-14.3)
== END ==
LOC: M WUC 17:30
PROVIDERS: ATTEND Physician Assistant
DX: I26.99 Other pulmonary embolism without acute cor pulmonale (principal)

== ENCOUNTER → 2020-06-05 | Outpatient (CLI) | payer MEDICARE ==
[2020-06-05 10:33] LABS: INR 2.49; PROTHROMBIN TIME 27.5 SECONDS (12.5-14.3)
== END ==
LOC: M WUC 08:35
PROVIDERS: ATTEND Physician Assistant
DX: I26.99 Other pulmonary embolism without acute cor pulmonale (principal)

== ENCOUNTER → 2020-07-31 | Outpatient (CLI) | payer MEDICARE ==
[2020-07-31 13:38] LABS: INR 2.32
== END ==
LOC: M WUC 09:45
PROVIDERS: ATTEND Physician Assistant
DX: I26.99 Other pulmonary embolism without acute cor pulmonale (principal)

== ENCOUNTER → 2020-09-11 | Outpatient (CLI) | payer MEDICARE ==
[~2020-09-11] MED LIST changes: -MAG400TA PO; +MAGN400T35 PO
[2020-09-11 12:03] LABS: INR 2.06; PROTHROMBIN TIME 23.6 SECONDS (12.5-14.3)
== END ==
LOC: M WUC 09:11
PROVIDERS: ATTEND Physician Assistant
DX: I48.0 Paroxysmal atrial fibrillation (principal)

== ENCOUNTER 2020-11-02 15:00 | Inpatient (IN) | payer MEDICARE ==
[~2020-11-02] VITALS: Ht 157.5 cm; Wt 93.7 kg
[2020-11-02] MEDS ORDERED: PRES10CA2 PO (15:20)
[2020-11-02] MEDS ORDERED: GLIM1TAB4 PO (15:20)
[2020-11-02] MEDS ORDERED: ELIQ2.5T PO (15:20)
[2020-11-02] MEDS ORDERED: FAMO20TA5 PO (15:20)
[2020-11-02] MEDS ORDERED: FISH1000 PO (15:20)
[2020-11-02 16:03] LABS: HEMATOCRIT 45.2 % (36.0-47.0); HEMOGLOBIN 14.8 g/dl (12.0-15.5); MEAN CORPUSCULAR HEMOGLOBIN 31.7 pg (27.0-33.0); MEAN CORPUSCULAR HGB CONC 32.7 g/dl (32.0-36.5); MEAN CORPUSCULAR VOLUME 96.8 fl (80.0-96.0); PLATELET COUNT, AUTOMATED 210 10^3/uL (150-450); RED BLOOD COUNT 4.67 10^6/uL (4.00-5.40); WHITE BLOOD COUNT 8.6 10^3/uL (4.0-10.0)
[2020-11-02 16:29] LABS: INR 1.12; PARTIAL THROMBOPLASTIN TIME 28.4 SECONDS (24.2-38.5); PROTHROMBIN TIME 14.7 SECONDS (12.5-14.3)
[2020-11-02 16:30] LABS: BASO % 0.5 % (0.0-1.0); EOS # 0.1 10^3/uL (0.0-0.5); EOS % 0.8 % (0.0-3.0); LYMPH # 1.9 10^3/uL (1.5-5.0); LYMPH % 21.7 % (24.0-44.0); MONO # 0.7 10^3/uL (0.0-0.8); MONO % 8.3 % (2.0-8.0); NEUTROPHILS % 68.1 % (36.0-66.0)
--- NOTE | 2020-11-02 16:31 | REP ---
INDICATION: Syncope/near-syncope. COMPARISON: 08/31/2018 TECHNIQUE: Portable FINDINGS: The technique utilized in obtaining the radiograph has magnified the cardiac silhouette and accentuated the interstitial markings. The superior mediastinal structures are midline. The cardiac silhouette is unremarkable in size, shape, and position. The diaphragmatic surfaces of the lungs are regular, and the costophrenic angles are clear. The pulmonary pelaez are clear. The imaged osseous structures are intact. IMPRESSION: There is no acute cardiopulmonary disease. <Electronically signed by Aakash Watson > 11/02/20 [id number]
[2020-11-02 16:41] LABS: PLATELET ESTIMATE NORMAL (NORMAL)
[2020-11-02 16:55] LABS: ALBUMIN 3.3 GM/DL (3.2-5.2); ALT/SGPT 25 U/L (12-78); BILIRUBIN,DIRECT 0.1 MG/DL (0.0-0.2); BILIRUBIN,TOTAL 0.6 MG/DL (0.2-1.0); BLOOD UREA NITROGEN 31 MG/DL (7-18); CALCIUM LEVEL 9.4 MG/DL (8.8-10.2); CARBON DIOXIDE LEVEL 29 MEQ/L (21-32); CHLORIDE LEVEL 104 MEQ/L (98-107); CK-MB VALUE MASS < 1.0 NG/ML (<3.6); CPK CREATINE PHOSPHOKINASE 70 U/L (26-192); CREATININE FOR GFR 1.98 MG/DL (0.55-1.30); GLOMERULAR FILTRATION RATE 25.4 (>32); GLUCOSE, FASTING 141 MG/DL (70-100); LIPASE 154 U/L (73-393); MB/CK RELATIVE INDEX 1.43 (< OR =4); POTASSIUM SERUM 4.2 MEQ/L (3.5-5.1); SODIUM LEVEL 137 MEQ/L (136-145); TOTAL PROTEIN 7.5 GM/DL (6.4-8.2); TROPONIN I < 0.02 NG/ML (< 0.10)
--- NOTE | 2020-11-02 18:30 | REPVR ---
PROCEDURE INFORMATION: Exam: CT Abdomen And Pelvis Without Contrast Exam date and time: 11/02/2020 5:09 PM Age: 85 years old Clinical indication: Abdominal pain; Generalized TECHNIQUE: Imaging protocol: Computed tomography of the abdomen and pelvis without contrast. Radiation optimization: All CT scans at this facility use at least one of these dose optimization techniques: automated exposure control; mA and/or kV adjustment per patient size (includes targeted exams where dose is matched to clinical indication); or iterative reconstruction. COMPARISON: CT ABD PELVIS W/O CONTRAST 05/26/2019 5:20 PM FINDINGS: Limitations: Absence of intravenous contrast limits evaluation of vascular and visceral structures. Pleural spaces: No consolidation or pleural effusions at the lung bases. Liver: There are no focal liver lesions. Gallbladder and bile ducts: Cholecystectomy. Pancreas: There is diffuse, benign fatty infiltration of the pancreas. Spleen: The spleen is unremarkable. Adrenal glands: The adrenal glands are unremarkable. Kidneys and ureters: Bilateral renal cortical atrophy. Stomach and bowel: There is no evidence of intestinal obstruction. No evidence of bowel wall thickening or pericolonic inflammation. Appendix: No evidence of appendicitis. Intraperitoneal space: Unremarkable. No free air. No significant fluid collection. Vasculature: There is no evidence of an infrarenal abdominal aortic aneurysm. There is moderate atherosclerotic calcification. Lymph nodes: Unremarkable. No enlarged lymph nodes. Urinary bladder: The bladder is unremarkable. Reproductive: Hysterectomy. Bones/joints: Scoliosis with associated spinal degeneration. Soft tissues: Unremarkable. IMPRESSION: No acute findings on this noncontrast examination. Electronically signed by: Leona Torres On 11/02/2020 18:29:53 PM
[2020-11-02] MEDS ORDERED: D32000CA PO (18:53)
[2020-11-02] MEDS ORDERED: K-PHTAB2 PO (18:53)
[2020-11-02] MEDS ORDERED: GLUCAGON INJ 1MG VIAL SC PRN (19:35)
[2020-11-02] MEDS ORDERED: GLUCOSE 4GM CHEW TABLET PO PRN (19:35)
[2020-11-02] MEDS ORDERED: ACETAMINOPHEN TAB 650MG DOSE (2X325MG) PO PRN (19:35)
[2020-11-02] MEDS ORDERED: DEXTROSE 50% 50 ML SYRINGE IV PRN (19:35)
--- NOTE | 2020-11-02 19:52 | HPEPDOC ---
General Date of Admission 11/02/20 Date of Service: November 02, 2020 Chief Complaint The patient is a 85-year-old female admitted with a reason for visit of Dmii / Rectal Bleeding. Source: Patient Exam Limitations: No limitations Timing/Duration: Day(s) History of Present Illness Patient is 85 years old female with past history of atrial fibrillation, diastolic CHF, hypertension, hypothyroidism, hyperlipidemia, type 2 diabetes presented hospital with blood in the stool. Patient stated that today she developed 2 bowel movements with stool covered with red blood. She stated that she never had this symptoms before. According to patient Her last colonoscopy was unremarkable and it was more than 10 years ago. Patient denies any fever chills nausea, vomiting. She stated that 4 days ago she had diffuse abdominal pain which completely resolved. In ER CT abdomen and pelvis was done and did not show any acute findings, hemoglobin 14.8, creatinine 1.9, lactic acid 1.5. EKG did not show any acute ischemic changes. Of note patient was prescribed Eliquis one month ago. Home Medications Scheduled Allopurinol (Allopurinol) 100 Mg Tab, 100 MG PO DAILY, (Reported) Apixaban (Eliquis) 2.5 Mg Tablet, 2.5 MG PO BID, (Reported) Atenolol (Atenolol) 25 Mg Tab, 12.5 MG PO DAILY, (Reported) Calcitriol (Calcitriol) 0.25 Mcg Cap, 0.25 MCG PO 5XW, (Reported) TUE-TUE Cholecalciferol (Vitamin D3) (Vitamin D3) 50 Mcg Capsule, 50 MCG PO DAILY, (Reported) Famotidine (Famotidine) 20 Mg Tablet, 20 MG PO DAILY, (Reported) Flecainide Acetate (Flecainide Acetate) 50 Mg Tab, 50 MG PO BID, (Reported) Furosemide (Furosemide) 20 Mg Tab, 40 MG PO DAILY, (Reported) Levothyroxine Sodium (Euthyrox) 50 Mcg Tablet, 50 MCG OR DAILY, (Reported) Linagliptin (Tradjenta) 5 Mg Tab, 5 MG PO DAILY, (Reported) Magnesium Oxide (Magnesium Oxide) 400 Mg Tab, 400 MG PO QHS, (Reported) [place]-3 Fatty Acids/Fish Oil (Fish Oil 1,000 mg Capsule) 1 Each Capsule, 1 CAP PO DAILY, (Reported) Pravastatin Sodium (Pravastatin Sodium) 20 Mg Tab, 20 MG PO QHS, (Reported) Sod Phos Di, [place]/K Phos [place] (K-Phos Neutral Tablet) 250 Mg Tablet, 1 TAB PO DAILY, (Reported) Spironolactone (Spironolactone) 25 Mg Tab, 25 MG PO DAILY, (Reported) Vit C/E/Zn/Coppr/Lutein/Zeaxan (Preservision Areds 2 Softgel) 1 Each Capsule, 1 EACH PO BID, (Reported) Scheduled PRN Glimepiride (Glimepiride) 1 Mg Tablet, 1 MG PO DAILY PRN for HIGH BLOOD GLUCOSE, (Reported) ONLY TAKES IF EATS CEREAL FOR BREAKFAST Allergies Coded Allergies: Beta-Adrenergic Agents (Verified Allergy, Unknown, 11/02/20) atorvastatin (Verified Adverse Reaction, Unknown, headache; eyes hurt, 10/29/18) ezetimibe (Verified Adverse Reaction, Unknown, inability to walk; feels odd, 10/29/18) Past Medical History Medical History atrial fibrillation, diastolic CHF, hypertension, hypothyroidism, hyperlipidemia, type 2 diabetes, chronic kidney diseases Surgical History cholecystectomy Social History * Smoker: Denies Alcohol: Denies Drugs: denies A-FIB/CHADSVASC A-FIB History Current/History of A-Fib/PAF?: Yes Current PO Anticoag Therapy: Yes Review of Systems Constitutional: Denies: Chills, Fever Eyes: Denies: Pain ENT: Denies: Head Aches Pulmonary: Denies: Dyspnea, Cough Cardiovascular: Denies: Chest Pain Gastrointestinal: Reports: Hematochezia; Denies: Nausea, Vomiting Genitourinary: Denies: Dysuria, Frequency Hematologic: Denies: Bruising Endocrine: Denies: Polydipsia Musculoskeletal: Denies: Neck Pain Neurological: Denies: Weakness Psych: Reports: Mood Normal Physical Examination General Exam: Positive: Alert, Cooperative Eye Exam: Positive: PERRLA ENT Exam: Positive: Atraumatic Neck Exam: Positive: Supple; Negative: JVD Chest Exam: Positive: Clear to auscultation Heart Exam: Positive: Irregular Rhythm Telemetry: Positive: Atrial fibrillation Abdomen Exam: Positive: BS Hyperactive Extremity Exam: Negative: Clubbing Skin Exam: Positive: Nl turgor and temperature Neuro Exam: Positive: Strength at 5/5 X4 ext Psych Exam: Positive: Mental status NL Vital Signs Vital Signs Date Time Temp Pulse Resp B/P (MAP) Pulse Ox O2 Delivery O2 Flow Rate FiO2 11/02/20 18:00 61 129/63 (85) 93 11/02/20 15:00 98.2 18 Room Air Laboratory Data Labs 24H Laboratory Tests 2 11/02/20 15:49: Immature Granulocyte % (Auto) 0.6, Neutrophils (%) (Auto) 68.1H, Lymphocytes (%) (Auto) 21.7L, Monocytes (%) (Auto) 8.3H, Eosinophils (%) (Auto) 0.8, Basophils (%) (Auto) 0.5, Neutrophils # (Auto) 6.0, Lymphocytes # (Auto) 1.9, Monocytes # (Auto) 0.7, Eosinophils # (Auto) 0.1, Basophils # (Auto) 0.0, Immature Granulocyte # (Auto) 0.1H, Nucleated Red Blood Cells % (auto) 0.0, Platelet Estimate NORMAL, Prothrombin Time 14.7H, Prothromb Time International Ratio 1.12, Activated Partial Thromboplast Time 28.4, Anion Gap 4L, Glomerular Filtration Rate 25.4L, Lactic Acid Level 1.5, Calcium Level 9.4, Total Bilirubin 0.6, Direct Bilirubin 0.1, Aspartate Amino Transf (AST/SGOT) 25, Alanine Aminotransferase (ALT/SGPT) 25, Alkaline Phosphatase 81, Total Creatine Kinase 70, Creatine Kinase MB < 1.0, Creatine Kinase MB Relative Index 1.43, Troponin I < 0.02, Total Protein 7.5, Albumin 3.3, Albumin/Globulin Ratio 0.8L, Lipase 154, Thyroid Stimulating Hormone (TSH) 1.810 11/02/20 19:19: CBC/BMP Laboratory Tests 11/02/20 15:49 Assessment/Plan Patient is 85 years old female with past history of atrial fibrillation, diastolic CHF, hypertension, hypothyroidism, hyperlipidemia, type 2 diabetes presented hospital with blood in the stool. Patient stated that today she developed 2 bowel movements with stool covered with red blood. She stated that she never had this symptoms before. According to patient Her last colonoscopy was unremarkable and it was more than 10 years ago. Patient denies any fever chills nausea, vomiting. She stated that 4 days ago she had diffuse abdominal pain which completely resolved. In ER CT abdomen and pelvis was done and did not show any acute findings, hemoglobin 14.8, creatinine 1.9, lactic acid 1.5. EKG did not show any acute ischemic changes. Of note patient was prescribed Eliquis one month ago. Problems (1) GI bleed Status: Acute Problem Text: H&H every 6 hours Hemoglobin stable of 14.8 If hemoglobin drop consider GI consult PPI (2) Atrial fibrillation Status: Chronic Problem Text: Eliquis on hold Heart rate under control Continue home meds (3) Hypertension Status: Chronic Problem Text: Continue home meds (4) Hyperlipidemia Status: Chronic Problem Text: Continue statin (5) Hypothyroidism Status: Chronic Problem Text: Continue levothyroxine Plan / VTE VTE Prophylaxis Ordered?: No VTE Exclusion Pharmacological: Bleeding Risk YENNI KHAN DO November 02, 2020 19:52
[2020-11-02 20:04] LABS: RSV AMPLIFICATION NEGATIVE (NEGATIVE)
[2020-11-02 21:48] VITALS: BP 149/86
[2020-11-02] MEDS: HumaLOG INSULIN (NovoLOG) PER UNIT SC SCH (22:00)
[2020-11-02] MEDS: FLECAINIDE 50MG TABLET PO SCH (22:51)
[2020-11-02] MEDS: PANTOPRAZOLE 40MG VIAL (C9113 PER 1) IV SCH (22:51)
[2020-11-02] MEDS: PRAVASTATIN 20 MG TAB PO SCH (22:51)
[2020-11-02] MEDS: MAGNESIUM OXIDE 400MG TAB (MAG-OX) PO SCH (22:51)
[2020-11-03 05:25] VITALS: BP_SYST 110; BP_SYST 131; BP_SYST 135; BP_DIAS 66; BP_DIAS 71; BP_DIAS 73
[2020-11-03 06:00] VITALS: BP 110/73
[2020-11-03 06:02] LABS: HEMATOCRIT 43.8 % (36.0-47.0); HEMOGLOBIN 14.1 g/dl (12.0-15.5); MEAN CORPUSCULAR HEMOGLOBIN 31.2 pg (27.0-33.0); MEAN CORPUSCULAR HGB CONC 32.2 g/dl (32.0-36.5); MEAN CORPUSCULAR VOLUME 96.9 fl (80.0-96.0); PLATELET COUNT, AUTOMATED 212 10^3/uL (150-450); RED BLOOD COUNT 4.52 10^6/uL (4.00-5.40); WHITE BLOOD COUNT 9.3 10^3/uL (4.0-10.0)
[2020-11-03 06:35] LABS: ALBUMIN 3.2 GM/DL (3.2-5.2); BILIRUBIN,TOTAL 0.6 MG/DL (0.2-1.0); CALCIUM LEVEL 9.8 MG/DL (8.8-10.2); CREATININE FOR GFR 1.76 MG/DL (0.55-1.30); GLOMERULAR FILTRATION RATE 29.1 (>32); MAGNESIUM LEVEL 2.3 MG/DL (1.8-2.4); POTASSIUM SERUM 3.8 MEQ/L (3.5-5.1); TOTAL PROTEIN 6.9 GM/DL (6.4-8.2)
[2020-11-03] MEDS ORDERED: SPIRONOLACTONE 25 MG TAB PO SCH (09:00)
[2020-11-03] MEDS ORDERED: FUROSEMIDE 20 MG TAB PO SCH (09:00)
[2020-11-03] MEDS: FLECAINIDE 50MG TABLET PO SCH ×2 (09:19→20:17)
[2020-11-03] MEDS: PANTOPRAZOLE 40MG VIAL (C9113 PER 1) IV SCH ×2 (09:19→20:17)
[2020-11-03] MEDS: allopurinoL 100 MG TAB PO SCH (09:19)
[2020-11-03] MEDS: LEVOTHYROXINE 50MCG TABLET (0.05MG) PO SCH (09:19)
[2020-11-03] MEDS: CALCITRIOL 0.25 MCG CAP (S0169) PO SCH (09:19)
[2020-11-03] MEDS: ATENOLOL 12.5MG PER 1/2 TABLET PO SCH (09:19)
[2020-11-03] MEDS: HumaLOG INSULIN (NovoLOG) PER UNIT SC SCH ×5 (09:20→21:00)
[2020-11-03 11:42] LABS: HEMATOCRIT 41.5 % (36.0-47.0); HEMOGLOBIN 13.6 g/dl (12.0-15.5); MEAN CORPUSCULAR HEMOGLOBIN 32.1 pg (27.0-33.0); MEAN CORPUSCULAR HGB CONC 32.8 g/dl (32.0-36.5); MEAN CORPUSCULAR VOLUME 97.9 fl (80.0-96.0); PLATELET COUNT, AUTOMATED 201 10^3/uL (150-450); RED BLOOD COUNT 4.24 10^6/uL (4.00-5.40); WHITE BLOOD COUNT 8.3 10^3/uL (4.0-10.0)
[2020-11-03 14:00] VITALS: BP 127/43
--- NOTE | 2020-11-03 16:07 | ECGEPIP ---
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 Electronically Signed on 11-03-2020 16:06:59 EDT by Jm Reid
[2020-11-03 17:07] LABS: HEMATOCRIT 43.3 % (36.0-47.0); HEMOGLOBIN 13.6 g/dl (12.0-15.5); MEAN CORPUSCULAR HEMOGLOBIN 30.8 pg (27.0-33.0); MEAN CORPUSCULAR HGB CONC 31.4 g/dl (32.0-36.5); PLATELET COUNT, AUTOMATED 208 10^3/uL (150-450); RED BLOOD COUNT 4.42 10^6/uL (4.00-5.40); WHITE BLOOD COUNT 8.6 10^3/uL (4.0-10.0)
[2020-11-03] MEDS: SUCRALFATE SUSP 1GM/10ML UD PO SCH ×2 (18:10→20:17)
--- NOTE | 2020-11-03 20:00 | ECGEPIP ---
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
[2020-11-03] MEDS: PRAVASTATIN 20 MG TAB PO SCH (20:17)
[2020-11-03] MEDS: MAGNESIUM OXIDE 400MG TAB (MAG-OX) PO SCH (20:17)
--- NOTE | 2020-11-03 20:38 | IPNPDOC ---
Subjective Date Seen The patient was seen on 11/03/20. Subjective Chief Complaint/HPI Mrs. Rivera is an 85 year old female with atrial fibrillation on Eliquis, DM type 2, hypertension, and CHF who presents with blood in stool, abdominal pain, and dizziness. This morning, abdominal pain was better. Abdominal pain is worse with food. Otherwise, she is orthostatic positive. Will discontinue spironolactone and Lasix. Continued atenolol due to atrial fibrillation. Otherwise, patient hemoglobin was still dropping. Will continue following throughout the day. Patient signed consent for blood products in case if it is needed. Objective Physical Examination General Exam: Positive: Alert, Cooperative Eye Exam: Positive: PERRLA ENT Exam: Positive: Atraumatic Neck Exam: Positive: Supple; Negative: JVD Chest Exam: Positive: Clear to auscultation Heart Exam: Positive: Irregular Rhythm Telemetry: Positive: Atrial fibrillation Abdomen Exam: Positive: BS Hyperactive Extremity Exam: Negative: Clubbing Skin Exam: Positive: Nl turgor and temperature Neuro Exam: Positive: Strength at 5/5 X4 ext Psych Exam: Positive: Mental status NL Assessment /Plan Assessment Mrs. Rivera is an 85 year old female with atrial fibrillation on Eliquis, DM type 2, hypertension, and CHF who presents with blood in stool, abdominal pain, and dizziness. She had blood on her stool which prompted her to come to the ED. It may explain her abdominal pain and orthostatic hypotension. Abdominal pain may also be from dyspepsia. CT abd/pelvis normal. Started patient on Carafate and PPI. Orthostatic hypotension may be from medications. Discontinue spironolactone and Lasix. Continue atenolol due to atrial fibrillation. Will continue trending CBC. Patient signed consent for blood if needed. Plan/VTE VTE Prophylaxis Ordered?: Yes Plan 1. Hematochezia -May be from hemorrhoids -H&H declining -Follow H&H, consider general surgery/GI if continues to drop 2. Orthostatic hypotension -Most likely from medication -Discontinue Lasix and spironolactone -Continue atenolol due to atrial fibrillation 3. Dyspepsia -Added Carafate and PPI 4. Atrial fibrillation -Continue atenolol and Flecainide -Hold Eliquis 5. DM type 2 -Continue insulin sliding scale 6. Hypothyroidsim -Continue levothyroxine 7. DVT ppx -SCD and TEDs Disposition: Pending stability of H&H. If does not drop tomorrow, possible discharge tomorrow. VS, I&O, 24H, Fishbone Vital Signs/I&O Vital Signs Date Time Temp Pulse Resp B/P (MAP) Pulse Ox O2 Delivery O2 Flow Rate FiO2 11/03/20 14:00 97.9 59 16 127/43 (71) 94 Room Air I&O- Last 24 Hours up to 6 AM 11/03/20 06:00 Intake Total 100 ml Output Total 225 ml Balance -125 ml Laboratory Data 24H LABS Laboratory Tests 2 11/02/20 21:59: Bedside Glucose (Misc Panel) 112H 11/03/20 05:36: Nucleated Red Blood Cells % (auto) 0.0, Anion Gap 8, Glomerular Filtration Rate 29.1L, Calcium Level 9.8, Magnesium Level 2.3, Total Bilirubin 0.6, Aspartate Amino Transf (AST/SGOT) 17, Alanine Aminotransferase (ALT/SGPT) 16, Alkaline Phosphatase 77, Total Protein 6.9, Albumin 3.2, Albumin/Globulin Ratio 0.9L 11/03/20 11:22: Nucleated Red Blood Cells % (auto) 0.0 11/03/20 11:41: Bedside Glucose (Misc Panel) 185H 11/03/20 16:39: Bedside Glucose (Misc Panel) 174H 11/03/20 16:50: Nucleated Red Blood Cells % (auto) 0.0 CBC/BMP Laboratory Tests 11/03/20 05:36 11/03/20 11:22 11/03/20 16:50 ZURDO DOE DO November 03, 2020 20:38
[2020-11-03 22:00] VITALS: BP 145/59
[2020-11-03 22:37] LABS: HEMATOCRIT 40.7 % (36.0-47.0); HEMOGLOBIN 13.1 g/dl (12.0-15.5); MEAN CORPUSCULAR HEMOGLOBIN 31.3 pg (27.0-33.0); MEAN CORPUSCULAR HGB CONC 32.2 g/dl (32.0-36.5); MEAN CORPUSCULAR VOLUME 97.4 fl (80.0-96.0); PLATELET COUNT, AUTOMATED 198 10^3/uL (150-450); RED BLOOD COUNT 4.18 10^6/uL (4.00-5.40); WHITE BLOOD COUNT 8.4 10^3/uL (4.0-10.0)
[2020-11-04 06:00] VITALS: BP 149/61
[2020-11-04 06:10] LABS: HEMATOCRIT 41.4 % (36.0-47.0); HEMOGLOBIN 13.3 g/dl (12.0-15.5); MEAN CORPUSCULAR HEMOGLOBIN 31.5 pg (27.0-33.0); MEAN CORPUSCULAR HGB CONC 32.1 g/dl (32.0-36.5); MEAN CORPUSCULAR VOLUME 98.1 fl (80.0-96.0); PLATELET COUNT, AUTOMATED 201 10^3/uL (150-450); RED BLOOD COUNT 4.22 10^6/uL (4.00-5.40); WHITE BLOOD COUNT 7.8 10^3/uL (4.0-10.0)
[2020-11-04 06:27] LABS: CALCIUM LEVEL 9.4 MG/DL (8.8-10.2); CREATININE FOR GFR 2.01 MG/DL (0.55-1.30); GLOMERULAR FILTRATION RATE 24.9 (>32); POTASSIUM SERUM 3.8 MEQ/L (3.5-5.1)
[2020-11-04] MEDS: SUCRALFATE SUSP 1GM/10ML UD PO SCH ×2 (08:19→13:09)
[2020-11-04] MEDS: PANTOPRAZOLE 40MG VIAL (C9113 PER 1) IV SCH (08:19)
[2020-11-04] MEDS: LEVOTHYROXINE 50MCG TABLET (0.05MG) PO SCH (08:19)
[2020-11-04] MEDS: allopurinoL 100 MG TAB PO SCH (08:19)
[2020-11-04] MEDS: HumaLOG INSULIN (NovoLOG) PER UNIT SC SCH ×2 (08:19→13:09)
[2020-11-04] MEDS: CALCITRIOL 0.25 MCG CAP (S0169) PO SCH (08:19)
[2020-11-04] MEDS: FLECAINIDE 50MG TABLET PO SCH (08:20)
[2020-11-04 08:21] VITALS: BP 145/59
[2020-11-04] MEDS: ATENOLOL 12.5MG PER 1/2 TABLET PO SCH (08:21)
[2020-11-04 14:00] VITALS: BP 121/46
[2020-11-04] MEDS ORDERED: NS 0.45% 1,000 ML IV SCH (14:00)
[2020-11-04] MEDS ORDERED: SUCR1ORA PO (16:46)
[2020-11-04] MEDS ORDERED: PANT-23 PO (16:46)
--- NOTE | 2020-11-04 16:46 | DS.PDOC ---
Discharge Summary General Date of Admission November 03, 2020 at 20:29 Date of Discharge 11/04/20 Discharge Summary PROCEDURES PERFORMED DURING STAY: [None]. COMPLICATIONS/CHIEF COMPLAINT: Abdominal Pain,Rectal Bleed. HISTORY OF PRESENT ILLNESS: Patient is 85 years old female with past history of atrial fibrillation, diastolic CHF, hypertension, hypothyroidism, hyperlipidemia, type 2 diabetes presented hospital with blood in the stool. Patient stated that today she developed 2 bowel movements with stool covered with red blood. She stated that she never had this symptoms before. According to patient Her last colonoscopy was unremarkable and it was more than 10 years ago. Patient denies any fever chills nausea, vomiting. She stated that 4 days ago she had diffuse abdominal pain which completely resolved. In ER CT abdomen and pelvis was done and did not show any acute findings, hemoglobin 14.8, creati nine 1.9, lactic acid 1.5. EKG did not show any acute ischemic changes. Of note patient was prescribed Eliquis one month ago. HOSPITAL COURSE: 1. Hematochezia -May be from hemorrhoids -Hemoglobin has been trending between 13.1 and 14.1 throughout the admission. - No further episodes of bleeding - Discussed with Dr. Guidry recommends discharge home with follow-up in Gen. surgery clinic. 2. Orthostatic hypotension -Most likely from medication -held Lasix and spironolactone during admission, hold on DC - to f/u with PCP to evaluate to resume medication -Continue atenolol due to atrial fibrillation 3. Dyspepsia -Added Carafate and PPI 4. Atrial fibrillation -Continue atenolol and Flecainide - eliquis was held during admission, resumed on DC 5. DM type 2 -insulin sliding scale - hypoglycemic precautions were maintained 6. Hypothyroidsim -Continue levothyroxine 7. DVT ppx -SCD and TEDs DISCHARGE MEDICATIONS: Please see below. ALLERGIES: Please see below. PHYSICAL EXAMINATION ON DISCHARGE: VITAL SIGNS: please see below General: NAD, comfortable HEENT: PERRLA, EOMI, sclerae clear Neck: supple, normal ROM, no JVD Respiratory: lungs CTAB, no wheeze, no rales, no crackles CVS: RRR, normal S1, S2, no murmurs Abdo: soft, no masses, no hepatosplenomegaly, BS+, no rebound tenderness Extremities: no edema, pulses 2+ MSK: no joint deformities, normal ROM Neuro: no focal neuro deficits, moving all 4 extremities, CN2-12 intact. Strength 5/5 in all 4 extremities. No nystagmus. Psych: calm, cooperative, AAO x 3 LABORATORY DATA: Please see below. IMAGING: CT abdo pelvis wo contrast (11/02/20) FINDINGS: Limitations: Absence of intravenous contrast limits evaluation of vascular and visceral structures. Pleural spaces: No consolidation or pleural effusions at the lung bases. Liver: There are no focal liver lesions. Gallbladder and bile ducts: Cholecystectomy. Pancreas: There is diffuse, benign fatty infiltration of the pancreas. Spleen: The spleen is unremarkable. Adrenal glands: The adrenal glands are unremarkable. Kidneys and ureters: Bilateral renal cortical atrophy. Stomach and bowel: There is no evidence of intestinal obstruction. No evidence of bowel wall thickening or pericolonic inflammation. Appendix: No evidence of appendicitis. Intraperitoneal space: Unremarkable. No free air. No significant fluid collection. Vasculature: There is no evidence of an infrarenal abdominal aortic aneurysm. There is moderate atherosclerotic calcification. Lymph nodes: Unremarkable. No enlarged lymph nodes. Urinary bladder: The bladder is unremarkable. Reproductive: Hysterectomy. Bones/joints: Scoliosis with associated spinal degeneration. Soft tissues: Unremarkable. IMPRESSION: No acute findings on this noncontrast CXR (11/02/20) FINDINGS: The technique utilized in obtaining the radiograph has magnified the cardiac silhouette and accentuated the interstitial markings. The superior mediastinal structures are midline. The cardiac silhouette is unremarkable in size, shape, and position. The diaphragmatic surfaces of the lungs are regular, and the costophrenic angles are clear. The pulmonary pelaez are clear. The imaged osseous structures are intact. IMPRESSION: There is no acute cardiopulmonary disease. PROGNOSIS: good ACTIVITY: [As tolerated]. DIET: Consistent carbohydrate diet DISCHARGE PLAN: Discharge home with primary care follow-up within 3-5 days. Also up with general surgery, Dr. Guidry in 2 weeks. Hold spironolactone and furosemide, until PCP eval. DISPOSITION: Discharge home cleared by PT for return to home with prior level of care. Patient has adequate family support. DISCHARGE INSTRUCTIONS: 1. F/u with PCP 3-5 days 2. Referral to Dr. Guidry, General Surgery in 2 weeks. 3. If you develop bleeding, lightheadedness, fatigue, chest pain, shortness of b reath, nausea, diarrhea or vomiting, or otherwise worsening of your symptoms, please call 911 or return to the nearest ER. DISCHARGE CONDITION: [Stable]. TIME SPENT ON DISCHARGE: 35 minutes Vital Signs/I&Os Vital Signs Date Time Temp Pulse Resp B/P (MAP) Pulse Ox O2 Delivery O2 Flow Rate FiO2 11/04/20 14:00 97.9 58 16 121/46 (71) 94 Room Air I&O- Last 24 Hours up to 6 AM 11/04/20 06:00 Intake Total 1540 ml Output Total 1050 ml Balance 490 ml Laboratory Data Labs 24H Laboratory Tests 2 11/03/20 16:50: Nucleated Red Blood Cells % (auto) 0.0 11/03/20 21:55: Bedside Glucose (Misc Panel) 189H 11/03/20 22:28: Nucleated Red Blood Cells % (auto) 0.0 11/04/20 05:36: Nucleated Red Blood Cells % (auto) 0.0, Anion Gap 5L, Glomerular Filtration Rate 24.9L, Calcium Level 9.4 11/04/20 12:23: Bedside Glucose (Misc Panel) 137H CBC/BMP Laboratory Tests 11/03/20 16:50 11/03/20 22:28 11/04/20 05:36 FSBS Laboratory Tests Test 11/03/20 21:55 11/04/20 12:23 Range/Units Bedside Glucose (Misc Panel) 189 137 83-110 MG/DL Discharge Medications Scheduled Allopurinol (Allopurinol) 100 Mg Tab, 100 MG PO DAILY, (Reported) Apixaban (Eliquis) 2.5 Mg Tablet, 2.5 MG PO BID, (Reported) Atenolol (Atenolol) 25 Mg Tab, 12.5 MG PO DAILY, (Reported) Calcitriol (Calcitriol) 0.25 Mcg Cap, 0.25 MCG PO 5XW, (Reported) TUE-TUE Cholecalciferol (Vitamin D3) (Vitamin D3) 50 Mcg Capsule, 50 MCG PO DAILY, (Reported) Flecainide Acetate (Flecainide Acetate) 50 Mg Tab, 50 MG PO BID, (Reported) Furosemide (Furosemide) 20 Mg Tab, 40 MG PO DAILY, (Reported) Levothyroxine Sodium (Euthyrox) 50 Mcg Tablet, 50 MCG OR DAILY, (Reported) Linagliptin (Tradjenta) 5 Mg Tab, 5 MG PO DAILY, (Reported) Magnesium Oxide (Magnesium Oxide) 400 Mg Tab, 400 MG PO QHS, (Reported) [place]-3 Fatty Acids/Fish Oil (Fish Oil 1,000 mg Capsule) 1 Each Capsule, 1 CAP PO DAILY, (Reported) Pantoprazole Sodium (Pantoprazole Sodium) 40 Mg Tablet.dr, 1 TAB PO DAILY Pravastatin Sodium (Pravastatin Sodium) 20 Mg Tab, 20 MG PO QHS, (Reported) Sod Phos Di, [place]/K Phos [place] (K-Phos Neutral Tablet) 250 Mg Tablet, 1 TAB PO DAILY, (Reported) Spironolactone (Spironolactone) 25 Mg Tab, 25 MG PO DAILY, (Reported) Sucralfate (Sucralfate) 1 Gm Tablet, 1 TAB PO QID Vit C/E/Zn/Coppr/Lutein/Zeaxan (Preservision Areds 2 Softgel) 1 Each Capsule, 1 EACH PO BID, (Reported) Scheduled PRN Glimepiride (Glimepiride) 1 Mg Tablet, 1 MG PO DAILY PRN for HIGH BLOOD GLUCOSE, (Reported) ONLY TAKES IF EATS CEREAL FOR BREAKFAST Allergies Coded Allergies: Beta-Adrenergic Agents (Verified Allergy, Unknown, 11/02/20) atorvastatin (Verified Adverse Reaction, Unknown, headache; eyes hurt, 10/29/18) ezetimibe (Verified Adverse Reaction, Unknown, inability to walk; feels odd, 10/29/18) XANDER HAMPTON MD November 04, 2020 16:46
[2020-11-04] MEDS ORDERED: SUCR1TAB56 PO (18:02)
== END 2020-11-04 18:41 | disposition home or self-care (01) | DRG 394 ==
LOC: M ED 15:00 → M ED INP 15:01 → ENRESERV 20:36 → M MSPAV 21:47 → OBSVTOIN 11-03 20:29
PROVIDERS: ADMIT Internal Medicine; ATTEND Family Medicine
DX: K64.9 Unspecified hemorrhoids (principal); K92.1 Melena; I50.32 Chronic diastolic (congestive) heart failure; I13.0 Hypertensive heart and chronic kidney disease with heart failure and stage 1 through stage 4 chronic kidney disease, or unspecified chronic kidney disease; I48.91 Unspecified atrial fibrillation; E03.9 Hypothyroidism, unspecified; E78.5 Hyperlipidemia, unspecified; E11.9 Type 2 diabetes mellitus without complications; I95.1 Orthostatic hypotension; Z79.899 Other long term (current) drug therapy; Z88.8 Allergy status to other drugs, medicaments and biological substances; N18.9 Chronic kidney disease, unspecified; R10.13 Epigastric pain

== ENCOUNTER → 2021-03-11 | Outpatient (REF) | payer MEDICARE ==
[~2021-03-11] MED LIST changes: +D32000CA PO; +ELIQ2.5T PO; +FAMO20TA5 PO; +FISH1000 PO; +GLIM1TAB4 PO; +K-PHTAB2 PO; +PANT-23 PO; +PRES10CA2 PO; +SUCR1ORA PO; +SUCR1TAB56 PO
== END ==
LOC: M LAB REF 12:45
PROVIDERS: ATTEND Nurse Practitioner Family
DX: E83.42 Hypomagnesemia (principal)

== ENCOUNTER → 2022-07-28 | Outpatient (REF) | payer MEDICARE | LOC: M LAB REF 12:37 | PROVIDERS: ATTEND Family Medicine | DX: M62.89 Other specified disorders of muscle (principal); R53.83 Other fatigue ==

== ENCOUNTER → 2022-10-27 | Outpatient (REF) | payer MEDICARE ==
[2022-10-27 17:31] LABS: FERRITIN 8.5 NG/ML (7.3-270.7); FOLATE 10.6 NG/ML (>5.4); PERCENT SATURATION 4.7 % (13.2-45.0)
== END ==
LOC: M LAB REF 16:21
PROVIDERS: ATTEND Family Medicine
DX: D64.9 Anemia, unspecified (principal)

== ENCOUNTER → 2022-11-18 | Outpatient (REF) | payer MEDICARE ==
[2022-11-18 18:34] LABS: PERCENT SATURATION 5.6 % (13.2-45.0)
== END ==
LOC: M LAB REF 17:04
PROVIDERS: ATTEND Nurse Practitioner Family
DX: D50.9 Iron deficiency anemia, unspecified (principal)

== ENCOUNTER 2022-11-25 12:31 | Outpatient (CLI) | payer MEDICARE ==
[~2022-11-25] VITALS: Ht 160 cm; Wt 90.7 kg
[~2022-11-25 12:31] MED LIST changes: +ALBUTEROL SULFATE 2.5MG/0.5ML INH NEB SOLN INH PRN; +EPINEPHrine INJ 1 MG/ML 1ML AMP IM PRN; +diphenhydrAMINE 50MG/ML VIAL IV PRN; +methylPREDNISolone 125MG 2ML VIAL IV PRN
[2022-11-25 12:40] VITALS: BP 170/72
[2022-11-25] MEDS ORDERED: FERRIC CARBOXYMALTOSE INJ 750 MG in NS 250 ML (>50kg) IV ONE ×3 (13:00)
[2022-11-25] MEDS ORDERED: NS 1,000 ML IV SCH (13:00)
[2022-11-25 14:00] VITALS: BP 141/58
== END 2022-11-25 14:05 | disposition home or self-care (01) ==
LOC: M INFU 12:31
PROVIDERS: ATTEND Internal Medicine Nephrology
DX: D50.9 Iron deficiency anemia, unspecified (principal); Z88.8 Allergy status to other drugs, medicaments and biological substances
CPT/HCPCS: 96365; J1439

== ENCOUNTER → 2022-12-22 | Outpatient (REF) | payer MEDICARE ==
[~2022-12-22] MED LIST changes: -ALBUTEROL SULFATE 2.5MG/0.5ML INH NEB SOLN INH PRN; -EPINEPHrine INJ 1 MG/ML 1ML AMP IM PRN; -diphenhydrAMINE 50MG/ML VIAL IV PRN; -methylPREDNISolone 125MG 2ML VIAL IV PRN
[2022-12-23 18:51] LABS: PERCENT SATURATION 22.5 % (13.2-45.0)
== END ==
LOC: M LAB REF 17:37
PROVIDERS: ATTEND Nurse Practitioner Family
DX: D50.9 Iron deficiency anemia, unspecified (principal)